=== PATIENT | male | born 1960 | race Native Hawaiian/Other Pacific Islander ===

== ENCOUNTER 2017-03-27 04:10 | Observation (INO) | payer OTHER ==
[2017-03-27] VITALS (8 sets, daily range): BP systolic 134–165; BP diastolic 73–99; TEMP 97.7–166.9; Ht 177.8 cm; Wt 78.6 kg
[~2017-03-27] VITALS: Ht 177.8 cm; Wt 78.6 kg
[2017-03-27 04:51] LABS: PLATELET COUNT 136 K/uL (142-355)
[2017-03-27 05:15] LABS: PARTIAL THROMBOPLASTIN TIME 27.4 SECONDS (24.5-33.6)
[2017-03-27 11:27] LABS: POTASSIUM 2.7 mmol/L (3.6-5.2)
[2017-03-28] VITALS: BP 137/86; TEMP 98.1
[2017-03-28 04:00] VITALS: BP 153/93; TEMP 98.2
[2017-03-28 05:05] LABS: PLATELET COUNT 130 K/uL (142-355)
[2017-03-28 05:51] LABS: POTASSIUM 3.7 mmol/L (3.6-5.2)
[2017-03-28 08:00] VITALS: BP 154/91; TEMP 97.9
[2017-03-28 12:00] VITALS: BP 154/92; TEMP 97.7
== END 2017-03-28 12:30 | disposition home or self-care (01) ==
LOC: ED 04:10 → MED/SURG 07:20
PROVIDERS: ADMIT Family Medicine
DX: J18.8 Other pneumonia, unspecified organism (principal); I12.9 Hypertensive chronic kidney disease with stage 1 through stage 4 chronic kidney disease, or unspecified chronic kidney disease; N18.3 Chronic kidney disease, stage 3 (moderate); R18.8 Other ascites; B19.20 Unspecified viral hepatitis C without hepatic coma; E87.1 Hypo-osmolality and hyponatremia; E83.42 Hypomagnesemia
CPT/HCPCS: 36415; 74022; 80053; 80200; 80320; 81000; 82140; 82150; 82550; 82553; 83690; 83735; 85027; 85610; 85730; 87040; 87077; 87185; 87186; 87205; 93005; 94640; 94664; 94760; 96365; 96366; 96367; 96374; 96375; 99220; 99284; G0378; J2270; J3260

== ENCOUNTER 2017-04-05 15:19 | Inpatient (IN) | payer OTHER ==
[~2017-04-05] VITALS: Ht 177.8 cm; Wt 76.7 kg
[2017-04-05 15:30] VITALS: BP 187/98; TEMP 98.3
[2017-04-05 16:23] LABS: PLATELET COUNT 117 K/uL (142-355)
[2017-04-05 16:30] VITALS: BP 174/86; TEMP 98.3
[2017-04-05 16:32] LABS: POTASSIUM 3.6 mmol/L (3.6-5.2)
[2017-04-05 17:28] LABS: PARTIAL THROMBOPLASTIN TIME 26.8 SECONDS (24.5-33.6)
[2017-04-05 17:35] VITALS: BP 174/78
[2017-04-05 18:28] VITALS: BP 174/82
[2017-04-05 23:55] VITALS: BP 159/79; TEMP 98.3; Ht 177.8 cm; Wt 76.7 kg
[2017-04-06] VITALS: BP 127/83; TEMP 98.1
[2017-04-06 04:00] VITALS: BP 135/74; TEMP 98.6
[2017-04-06 05:15] LABS: PLATELET COUNT 73 K/uL (142-355)
[2017-04-06 05:38] LABS: POTASSIUM 3.1 mmol/L (3.6-5.2)
[2017-04-06 08:00] VITALS: BP 141/81; TEMP 98.3
[2017-04-06 12:00] VITALS: BP 135/78; TEMP 98.2
[2017-04-06 16:00] VITALS: BP 140/78; TEMP 98.2
[2017-04-06 20:00] VITALS: BP 158/86; TEMP 98.7
[2017-04-07] VITALS: BP 141/89; TEMP 98.4
[2017-04-07 04:00] VITALS: BP 145/90; TEMP 98.4
[2017-04-07 06:23] LABS: PLATELET COUNT 79 K/uL (142-355)
[2017-04-07 06:31] LABS: POTASSIUM 4.1 mmol/L (3.6-5.2); SODIUM 137 mmol/L (136-145)
[2017-04-07 08:00] VITALS: BP 134/86; TEMP 98.1
[2017-04-07 12:00] VITALS: BP 137/94; TEMP 98.3
[2017-04-07 16:00] VITALS: BP 131/91; TEMP 98.4
[2017-04-08] VITALS: BP 162/104; TEMP 98.6
[2017-04-08 04:00] VITALS: BP 143/78; TEMP 97.7
[2017-04-08 06:33] LABS: POTASSIUM 3.8 mmol/L (3.6-5.2); SODIUM 137 mmol/L (136-145)
[2017-04-08 06:35] LABS: PLATELET COUNT 82 K/uL (142-355)
[2017-04-08 08:00] VITALS: BP 152/84; TEMP 98.1
[2017-04-08 12:00] VITALS: BP 142/94; TEMP 98
[2017-04-08 16:00] VITALS: BP 147/88; TEMP 98
[2017-04-08 20:00] VITALS: BP 155/86; TEMP 98.6
[2017-04-09 04:00] VITALS: BP 128/75; TEMP 97.8
[2017-04-09 04:21] LABS: PLATELET COUNT 79 K/uL (142-355)
[2017-04-09 04:52] LABS: SODIUM 135 mmol/L (136-145)
[2017-04-09 08:00] VITALS: BP 137/87; TEMP 98.3
[2017-04-09 12:00] VITALS: BP 145/78; TEMP 98.4
[2017-04-09 16:00] VITALS: BP 136/72; TEMP 98.7
[2017-04-09 20:29] VITALS: BP 138/84; TEMP 98.6
[2017-04-10] VITALS: BP 135/76; TEMP 98.7
[2017-04-10 04:00] VITALS: BP 146/77; TEMP 98.3
[2017-04-10 05:34] LABS: POTASSIUM 3.8 mmol/L (3.6-5.2); SODIUM 136 mmol/L (136-145)
[2017-04-10 06:04] LABS: PLATELET COUNT 73 K/uL (142-355)
[2017-04-10 08:00] VITALS: BP 155/95; TEMP 98.2
[2017-04-10 12:00] VITALS: BP 154/92; TEMP 98.3
== END 2017-04-10 14:39 | disposition home or self-care (01) | DRG 442 ==
LOC: ED 15:19 → MED/SURG 18:40
PROVIDERS: Family Medicine
PROC: 0W9G3ZZ Drainage of Peritoneal Cavity, Percutaneous Approach (ICD-10-PCS; principal; 2017-04-05)
PROC: 0W9G3ZZ Drainage of Peritoneal Cavity, Percutaneous Approach (ICD-10-PCS; 2017-04-08)
DX: K71.7 Toxic liver disease with fibrosis and cirrhosis of liver (principal); J44.1 Chronic obstructive pulmonary disease with (acute) exacerbation; R11.0 Nausea; K70.31 Alcoholic cirrhosis of liver with ascites; D64.89 Other specified anemias; R51 Headache; E87.6 Hypokalemia; E83.42 Hypomagnesemia; B19.20 Unspecified viral hepatitis C without hepatic coma; I12.9 Hypertensive chronic kidney disease with stage 1 through stage 4 chronic kidney disease, or unspecified chronic kidney disease; N18.3 Chronic kidney disease, stage 3 (moderate)
CPT/HCPCS: 36415; 74022; 80053; 81000; 82140; 82150; 83735; 83986; 85027; 85610; 85730; 87070; 87205; 89050; 94664; 96365; 96366; 96367; 96372; 96374; 96375; 96376; 99285; J1650; J1940; J2175; J2550; J3411; J3490; P9047